=== PATIENT | male | born 1965 | race Caucasian/White ===

== ENCOUNTER 2018-03-12 10:41 | Emergency (ER) | payer OTHER, MEDICAID ==
[~2018-03-12] VITALS: Ht 167.6 cm; Wt 77.1 kg
[2018-03-12] MEDS ORDERED: CILOXAN5 ML OD (11:25)
== END 2018-03-12 11:50 | disposition home or self-care (01) ==
LOC: ED 10:41
DX: S05.12XA Contusion of eyeball and orbital tissues, left eye, initial encounter (principal); H15.002 Unspecified scleritis, left eye; H15.102 Unspecified episcleritis, left eye; X58.XXXA Exposure to other specified factors, initial encounter
CPT/HCPCS: 99283